=== PATIENT | female | born 1990 | race Two or more races ===

== ENCOUNTER 2018-05-30 21:43 | Emergency (ER) | payer OTHER ==
[~2018-05-30] VITALS: Ht 160 cm; Wt 56.7 kg
[2018-05-31] MEDS ORDERED: ORASEP SPRAY30 ML MM (01:53)
[2018-05-31] MEDS ORDERED: CEFADROXIL500 MG PO (01:53)
== END 2018-05-31 01:56 | disposition home or self-care (01) ==
LOC: ER 21:43
DX: J02.8 Acute pharyngitis due to other specified organisms (principal)

== ENCOUNTER 2020-11-16 21:54 | Emergency (ER) | payer OTHER ==
[~2020-11-16] VITALS: Ht 160 cm; Wt 59.0 kg
[~2020-11-16 21:54] MED LIST: CEFADROXIL500 MG PO; ORASEP SPRAY30 ML MM
[2020-11-16] MEDS ORDERED: CLOTRIMAZOLE 321 GM VAG (23:58)
[2020-11-17] MEDS ORDERED: CLOTRIMAZOLE30 ML TOP (00:01)
== END 2020-11-17 01:54 | disposition home or self-care (01) ==
LOC: ER 21:54
DX: B35.3 Tinea pedis (principal)